=== PATIENT | female | born 1940 | race Caucasian/White ===

== ENCOUNTER 2021-05-31 08:45 | Day surgery (SDC) | payer MEDICARE ==
[2021-05-25 10:49] LABS: BASOPHILS % (AUTO) 0.5 % (0.0-5.0); EOSINOPHILS % (AUTO) 2.9 % (0.0-8.0); LYMPHOCYTES % (AUTO) 26.7 % (21.0-51.0); MEAN CORPUSCULAR HEMOGLOBIN 30.1 pg (27.0-33.0); MEAN CORPUSCULAR HGB CONC 33.1 g/dL (32.0-36.0); MEAN CORPUSCULAR VOLUME 91.1 fL (79-99); MONOCYTES % (AUTO) 12.3 % (3.0-13.0); NEUTROPHILS % (AUTO) 56.9 % (40.0-77.0); PLATELET COUNT (AUTO) 316 K/uL (130-400); RED BLOOD CELL COUNT(AUTO) 4.28 MIL/uL (4.00-5.50); RED CELL DISTRIBUTION WIDTH 13.2 % (11.0-15.5); WHITE BLOOD COUNT (AUTO) 9.2 K/uL (4.8-10.8)
[2021-05-25 10:54] LABS: INR 1.01 (0.85-1.15)
[2021-05-25 10:57] LABS: ALBUMIN 3.6 g/dL (3.5-5.0); BILIRUBIN,TOTAL 0.3 mg/dL (0.2-1.0); POTASSIUM 3.8 mmol/L (3.5-5.1); TOTAL PROTEIN, SERUM 7.2 g/dL (6.0-8.3)
[2021-05-28 09:29] VITALS: BP 189/80
[2021-05-31] VITALS (15 sets, daily range): BP systolic 119–183; BP diastolic 50–75
[~2021-05-31] VITALS: Ht 167.6 cm; Wt 80.6 kg
[~2021-05-31 08:45] MED LIST: 0.9%NACL 1000ML 1,000 ML IV SCH; LISI1TAB29 PO; MELO15TA12 PO; VITAMIN D3 PO
[2021-05-31] MEDS ORDERED: CEFAZOLIN SODIUM 1 GM VIAL ONE (09:07)
[2021-05-31] MEDS: CEFAZOLIN SODIUM 1 GM VIAL IVP ONE ×2 (09:15→11:52)
[2021-05-31] MEDS ORDERED: LIDOCAINE PF 100MG/5ML (2%) SYRINGE 5ML ONE (11:28)
[2021-05-31] MEDS ORDERED: PROPOFOL 10 MG/ML 20ML VIAL IV ONE (11:29)
[2021-05-31] MEDS ORDERED: ONDANSETRON 4MG INJ ONE ×2 (11:29→13:03)
[2021-05-31] MEDS ORDERED: ROCURONIUM 10MG/1ML SYR 10 MG/ML ML ONE (11:30)
[2021-05-31] MEDS ORDERED: FENTANYL CITRATE PF 50 MCG/1 ML 2ML VIAL ONE (11:30)
[2021-05-31] MEDS ORDERED: BUPIVACAINE/PF 0.5% 30ML VIAL ONE (11:34)
[2021-05-31] MEDS ORDERED: EPHEDRINE SULFATE 50 MG/ML AMPULE ONE (12:01)
[2021-05-31] MEDS ORDERED: OCTYL 2-CYANOACRYLATE 1 EACH TP ONE (12:05)
[2021-05-31] MEDS ORDERED: DEXAMETHASONE SOD PHOSPHATE 10MG/ML 1ML VIAL ONE (12:18)
[2021-05-31] MEDS ORDERED: NEOSTIGMINE 5MG/5ML SYR IV ONE (12:24)
[2021-05-31] MEDS ORDERED: GLYCOPYRROLATE 1 MG/5 ML SYRINGE ONE (12:24)
[2021-05-31] MEDS ORDERED: HYDRALAZINE 20MG/ML VIAL ONE (12:25)
[2021-05-31] MEDS ORDERED: MEPERIDINE-PF 25 MG/ML SYG ONE ×2 (12:44→12:57)
[2021-05-31] MEDS ORDERED: METOCLOPRAMIDE 10 MG/2 ML VIAL ONE (13:03)
== END 2021-05-31 14:40 | disposition home or self-care (01) ==
LOC: DAH 08:45
PROVIDERS: ATTEND Student in an Organized Health Care Education/Training Program
DX: K80.12 Calculus of gallbladder with acute and chronic cholecystitis without obstruction (principal); Z20.822 Contact with and (suspected) exposure to COVID-19; I10 Essential (primary) hypertension; Z87.891 Personal history of nicotine dependence; Z98.41 Cataract extraction status, right eye; Z98.42 Cataract extraction status, left eye; Z79.01 Long term (current) use of anticoagulants
CPT/HCPCS: 36415; 47562; 71045; 80053; 85025; 85610; 87426; 93005; A4215; A4221; A4222; A4223; A4600; A4649 ×3; A4663; A6206; A6207; C1769 ×3; J0360; J0690; J1100; J2001; J2175 ×2; J2405 ×2; J2704; J2710; J2765; J3010; J3490 ×3; J7030 ×2; J7120

== ENCOUNTER → 2024-03-11 | Outpatient (CLI) | payer MEDICARE ==
[~2024-03-11] MED LIST changes: -0.9%NACL 1000ML 1,000 ML IV SCH; -LISI1TAB29 PO; +LISI1TAB53 PO
== END | disposition home or self-care (01) ==
LOC: RAH 08:21
PROVIDERS: ATTEND Internal Medicine
DX: R91.8 Other nonspecific abnormal finding of lung field (principal); J90 Pleural effusion, not elsewhere classified; R63.4 Abnormal weight loss
CPT/HCPCS: 71250; 74176

== ENCOUNTER → 2024-04-25 | Outpatient (CLI) | payer MEDICARE ==
[~2024-04-25] MED LIST changes: +GADOTERATE MEGLUMINE 10 MMOL/20 ML VIAL IV ONE
== END | disposition home or self-care (01) ==
LOC: RAH 08:39
PROVIDERS: ATTEND Internal Medicine Medical Oncology
DX: C34.12 Malignant neoplasm of upper lobe, left bronchus or lung (principal); C79.31 Secondary malignant neoplasm of brain
CPT/HCPCS: 70553; A9575

== ENCOUNTER 2024-05-04 17:08 | Observation (INO) | payer MEDICARE ==
[~2024-05-04] VITALS: Ht 172.7 cm; Wt 56.7 kg
[~2024-05-04 17:08] MED LIST changes: +CA C-5 PO; +CHOL100040 PO; +GABA300C PO; -GADOTERATE MEGLUMINE 10 MMOL/20 ML VIAL IV ONE; -LISI1TAB53 PO; -MELO15TA12 PO; +ROSU5TAB43 PO; -VITAMIN D3 PO
[2024-05-04 18:17] LABS: BASOPHILS # (AUTO) 0.04 K/uL (0.00-0.20); BASOPHILS % (AUTO) 0.2 % (0.0-5.0); EOSINOPHILS # (AUTO) 0.03 K/uL (0.00-0.70); EOSINOPHILS % (AUTO) 0.2 % (0.0-8.0); HEMATOCRIT 35.3 % (36-48); IMMATURE GRANULOCYTE ABSOLUTE 0.22 K/uL (0-1); LYMPHOCYTES # (AUTO) 1.1 K/uL (1.0-4.8); LYMPHOCYTES % (AUTO) 6.7 % (21.0-51.0); MEAN CORPUSCULAR VOLUME 85.3 fL (79-99); MONOCYTES # (AUTO) 1.7 K/uL (0.1-1.0); MONOCYTES % (AUTO) 10.4 % (3.0-13.0); NEUTROPHILS # (AUTO) 13.1 K/uL (1.8-7.7); NEUTROPHILS % (AUTO) 81.1 % (40.0-77.0); PLATELET COUNT (AUTO) 501 K/uL (130-400); RED BLOOD CELL COUNT(AUTO) 4.14 MIL/uL (4.00-5.50); RED CELL DISTRIBUTION WIDTH 13.8 % (11.0-15.5); WHITE BLOOD COUNT (AUTO) 16.1 K/uL (4.8-10.8)
[2024-05-04 18:28] LABS: CREATININE 0.6 mg/dL (0.5-1.0); POTASSIUM 3.5 mmol/L (3.5-5.1)
[2024-05-04 18:32] LABS: ALBUMIN 2.6 g/dL (3.5-5.0); BILIRUBIN,TOTAL 0.7 mg/dL (0.2-1.0); TOTAL PROTEIN, SERUM 6.4 g/dL (6.0-8.3)
[2024-05-04 18:36] LABS: B-TYPE NATRIURETIC PEPTIDE 133 pg/mL (0-100)
[2024-05-04 19:06] LABS: INR 1.11 (0.85-1.15); PROTHROMBIN TIME 11.9 SEC (9.6-11.6)
[2024-05-04] MEDS: MORPHINE 2 MG SYG ONE (19:35)
[2024-05-04] MEDS: ONDANSETRON 4MG INJ ONE (19:36)
[2024-05-04 19:43] LABS: SARS-CoV-2, RNA, NAAT NEGATIVE SARS CoV-2 (NEGATIVE)
[2024-05-04 19:47] LABS: INFLUENZA TYPE A Negative For Type A (NEGATIVE); INFLUENZA TYPE B Negative For Type B (NEGATIVE)
[2024-05-04] MEDS: ONDANSETRON 4MG INJ IVP ONE (19:54)
[2024-05-04] MEDS ORDERED: IOHEXOL-350 50ML VIAL IV ONE (19:55)
[2024-05-04] MEDS: MORPHINE 4 MG SYG IVP ONE (19:55)
[2024-05-04 20:49] LABS: PARTIAL THROMBOPLASTIN TIME 24.2 SEC (26.3-35.5)
[2024-05-04] MEDS: CEFTRIAXONE 1G VIAL IVPB ONE (21:39)
[2024-05-04] MEDS ORDERED: ONDANSETRON 4MG INJ IVP PRN (22:00)
[2024-05-04] MEDS ORDERED: ACETAMINOPHEN 325 MG TAB PO PRN (22:00)
[2024-05-05] VITALS (8 sets, daily range): BP systolic 151–169; BP diastolic 73–91; PULSE 89–108; RESP 16–18; O2SAT 98
[2024-05-05 05:17] LABS: BASOPHILS # (AUTO) 0.05 K/uL (0.00-0.20); BASOPHILS % (AUTO) 0.3 % (0.0-5.0); EOSINOPHILS # (AUTO) 0.05 K/uL (0.00-0.70); EOSINOPHILS % (AUTO) 0.3 % (0.0-8.0); HEMATOCRIT 34.9 % (36-48); IMMATURE GRANULOCYTE ABSOLUTE 0.21 K/uL (0-1); LYMPHOCYTES # (AUTO) 1.3 K/uL (1.0-4.8); LYMPHOCYTES % (AUTO) 8.2 % (21.0-51.0); MEAN CORPUSCULAR HEMOGLOBIN 28.9 pg (27.0-33.0); MEAN CORPUSCULAR HGB CONC 33.2 g/dL (32.0-36.0); MEAN CORPUSCULAR VOLUME 86.8 fL (79-99); MONOCYTES # (AUTO) 1.9 K/uL (0.1-1.0); MONOCYTES % (AUTO) 11.5 % (3.0-13.0); NEUTROPHILS # (AUTO) 12.8 K/uL (1.8-7.7); NEUTROPHILS % (AUTO) 78.4 % (40.0-77.0); PLATELET COUNT (AUTO) 489 K/uL (130-400); RED BLOOD CELL COUNT(AUTO) 4.02 MIL/uL (4.00-5.50); RED CELL DISTRIBUTION WIDTH 13.8 % (11.0-15.5); WHITE BLOOD COUNT (AUTO) 16.3 K/uL (4.8-10.8)
[2024-05-05 05:39] LABS: ALBUMIN 2.3 g/dL (3.5-5.0); BILIRUBIN,TOTAL 0.5 mg/dL (0.2-1.0); CREATININE 0.5 mg/dL (0.5-1.0); POTASSIUM 3.8 mmol/L (3.5-5.1)
[2024-05-05] MEDS: HYDROCODONE/ACETAMINOPHEN 10/325 MG TAB PO PRN (05:43)
[2024-05-05] MEDS ORDERED: HYDROCODONE/ACETAMINOPHEN 10/325 MG TAB PO SCH (12:00)
[2024-05-05] MEDS: MORPHINE 4 MG SYG IVP PRN (12:17)
[2024-05-05] MEDS ORDERED: HYDR-4381 PO (12:56)
[2024-05-05] MEDS ORDERED: PHARMACY COMMUNICATION MISC SCH (14:30)
[2024-05-05] MEDS ORDERED: NALO12.52 PO (15:05)
[2024-05-05] MEDS: GABAPENTIN 300 MG CAPSULE PO SCH (16:53)
[2024-05-05] MEDS: HYDROCODONE/ACETAMINOPHEN 10/325 MG TAB PO SCH (16:54)
[2024-05-06] VITALS: BP 158/70; PULSE 99; RESP 18
[2024-05-06 04:00] VITALS: BP 158/71; PULSE 103; RESP 18
[2024-05-06 07:30] VITALS: BP 159/86; PULSE 117; RESP 20
[2024-05-06] MEDS: MOVANTIK 12.5 MG PO SCH (08:56)
[2024-05-06 09:00] VITALS: O2SAT 96
[2024-05-06] MEDS ORDERED: PHARMACY COMMUNICATION MISC SCH (09:00)
[2024-05-06 11:40] VITALS: BP 133/74; PULSE 104; RESP 18
== END 2024-05-06 12:50 | disposition hospice, home (50) ==
LOC: EDH 17:08 → EDHIP 21:53 → 3DH 05-05 00:10
PROVIDERS: ADMIT Internal Medicine; ATTEND Internal Medicine
DX: C34.90 Malignant neoplasm of unspecified part of unspecified bronchus or lung (principal); C79.51 Secondary malignant neoplasm of bone; F43.20 Adjustment disorder, unspecified; G89.3 Neoplasm related pain (acute) (chronic); F11.21 Opioid dependence, in remission; F41.0 Panic disorder [episodic paroxysmal anxiety]; F41.1 Generalized anxiety disorder; E78.00 Pure hypercholesterolemia, unspecified; G62.9 Polyneuropathy, unspecified; J91.0 Malignant pleural effusion; G95.20 Unspecified cord compression; I12.9 Hypertensive chronic kidney disease with stage 1 through stage 4 chronic kidney disease, or unspecified chronic kidney disease; N18.9 Chronic kidney disease, unspecified; H26.9 Unspecified cataract; J18.9 Pneumonia, unspecified organism; K44.9 Diaphragmatic hernia without obstruction or gangrene; K57.30 Diverticulosis of large intestine without perforation or abscess without bleeding; R07.81 Pleurodynia; K59.03 Drug induced constipation; K76.0 Fatty (change of) liver, not elsewhere classified; K80.20 Calculus of gallbladder without cholecystitis without obstruction; M19.90 Unspecified osteoarthritis, unspecified site; M85.80 Other specified disorders of bone density and structure, unspecified site; Z20.822 Contact with and (suspected) exposure to COVID-19; Z90.49 Acquired absence of other specified parts of digestive tract; Z96.641 Presence of right artificial hip joint; Z96.653 Presence of artificial knee joint, bilateral; Z79.899 Other long term (current) drug therapy; Z98.890 Other specified postprocedural states
CPT/HCPCS: 96374; 96375; 99285; 84484; 80053 ×2; 83880; 85025 ×2; 85610; 85730; 87804 ×2; 36415 ×2; 87635; 71045; 71260; 93005; 96376 ×2; G0378 ×39; J0696; J2405; J2270 ×4; Q9967